=== PATIENT | male | born 1980 | race African-American/Black ===

== ENCOUNTER 2022-10-10 06:48 | Emergency (ER) | payer MEDICAID, OTHER ==
[~2022-10-10] VITALS: Ht 170.2 cm; Wt 96.0 kg
[2022-10-10 07:57] VITALS: BP 113/53
== END 2022-10-10 07:57 | disposition home or self-care (01) ==
LOC: ER 06:48
DX: L25.8 Unspecified contact dermatitis due to other agents (principal); T50.905A Adverse effect of unspecified drugs, medicaments and biological substances, initial encounter; Y92.89 Other specified places as the place of occurrence of the external cause; X58.XXXA Exposure to other specified factors, initial encounter

== ENCOUNTER 2023-03-22 19:58 | Emergency (ER) | payer MEDICAID ==
[~2023-03-22] VITALS: Ht 170.2 cm; Wt 90.8 kg
[2023-03-22 20:12] VITALS: BP 125/51
== END 2023-03-23 00:04 | disposition left against medical advice (07) ==
LOC: ER 19:58
DX: H57.13 Ocular pain, bilateral (principal); Z53.21 Procedure and treatment not carried out due to patient leaving prior to being seen by health care provider

== ENCOUNTER 2023-09-08 11:46 | Emergency (ER) | payer MEDICAID ==
[~2023-09-08] VITALS: Ht 167.6 cm; Wt 92.1 kg
[2023-09-08 12:22] VITALS: BP 102/72; PULSE 64; RESP 18; TEMP 97.9; O2SAT 97
[2023-09-08 12:25] LABS: Urine Bacteria FEW /hpf (None Seen); Urine Blood Negative /uL (Negative); Urine Clarity Clear (Clear); Urine Color Yellow (Yellow); Urine Mucus FEW (None Seen); Urine Protein, UAD TRACE (Negative); Urine Specific Gravity 1.029 (1.001-1.035); Urine Sperm PRESENT /hpf (None Seen); Urine Urobilinogen Normal (Negative); Urine WBC 2 /hpf (0 - 3)
[2023-09-08] MEDS ORDERED: KETOROLAC TROMETH 60MG/2ML VIAL IM ONE (12:30)
[2023-09-08] MEDS ORDERED: ACET-1080 PO (13:00)
[2023-09-08] MEDS ORDERED: METH-1182 PO (13:00)
== END 2023-09-08 13:06 | disposition home or self-care (01) ==
LOC: ER 11:46
DX: S39.012A Strain of muscle, fascia and tendon of lower back, initial encounter (principal); M51.36 Other intervertebral disc degeneration, lumbar region; Z88.8 Allergy status to other drugs, medicaments and biological substances; X50.0XXA Overexertion from strenuous movement or load, initial encounter; Y93.89 Activity, other specified; Y92.89 Other specified places as the place of occurrence of the external cause; Y99.8 Other external cause status
CPT/HCPCS: 72100; 81001; 96372; 99284; J1885

== ENCOUNTER 2023-12-31 21:27 | Emergency (ER) | payer MEDICAID ==
[~2023-12-31] VITALS: Ht 170.2 cm; Wt 95.5 kg
[~2023-12-31 21:27] MED LIST: ACET-1080 PO; METH-1182 PO
[2023-12-31 21:43] VITALS: BP 136/73; PULSE 94; RESP 14; TEMP 98.1
[2023-12-31 22:10] LABS: Urine Bacteria FEW /hpf (None Seen); Urine Blood Negative /uL (Negative); Urine Clarity Clear (Clear); Urine Color Yellow (Yellow); Urine Mucus FEW (None Seen); Urine Protein, UAD 1+ (Negative); Urine Specific Gravity 1.034 (1.001-1.035); Urine Sperm PRESENT /hpf (None Seen); Urine WBC 2 /hpf (0 - 3)
[2024-01-01 00:33] VITALS: O2SAT 98
[2024-01-02 22:06] LABS: Chlamydia Trachomatis, NAA Negative (Negative); Neisseria gonorrhoeae, NAA Negative (Negative)
== END 2024-01-01 00:40 | disposition home or self-care (01) ==
LOC: ER 21:27
DX: R36.9 Urethral discharge, unspecified (principal); Z79.899 Other long term (current) drug therapy; Z88.2 Allergy status to sulfonamides; Z88.8 Allergy status to other drugs, medicaments and biological substances
CPT/HCPCS: 81001

== ENCOUNTER 2025-08-24 01:55 | Emergency (ER) | payer MEDICAID ==
[~2025-08-24] VITALS: Ht 170.2 cm; Wt 95.6 kg
--- NOTE | 2025-08-24 03:38 | ED.PDOC ---
History of Present Illness HPI Comments 44 y/o obese M presents with c/c of lower back pain. No reported injuries. Does report chills and subjective fever. Denial of any numbness, tingling, or further associated symptoms. Denies numbness, weakness, loss of bowel bladder control or saddle anesthesia. Chief Complaint: Back Pain Time Seen by MD: 03:15 Primary Care Provider: none Reviewed Notes: Nurses Notes, Medications, Allergies Allergies: Coded Allergies: Ibuprofen (Verified Allergy, Unknown, 10/10/22) Sulfa Antibiotics (Verified Allergy, Unknown, 10/10/22) Home Meds Active Scripts Methocarbamol (Methocarbamol) 750 Mg Tab, 750 MG PO BID, #20 TAB Prov:GUERA AGUSTIN 09/08/23 Acetaminophen (Tylenol 8 Hour Arthritis) 650 Mg Tab, 650 MG PO TID, #30 TAB Prov:GUERA AGUSTIN 09/08/23 Information Source: Patient Mode of Arrival: Ambulatory Severity: Moderate Timing: Hours Duration: Since onset Prehospital treatment: None Past Medical History PAST MEDICAL HISTORY: Denies Surgical History: Denies all surgeries Family History Family History: Reviewed,noncontributory to illness, No family hx of Cancer, No family hx of DM, No family hx of Heart karen, No family hx of HTN, No family hx ofKidney karen, No family hx of Liver karen, No family hx of Lung karen, No family hx of Stroke Social History Smoker: Non-Smoker Alcohol: Denies ETOH Use Drugs: Denies Drug Use Lives In: Home All Other Systems: Reviewed and Negative (Comprehensive review of systems are negative unless stated in HPI) Physical Exam General Appearance: No Apparent Distress, Normal HEENT: Pharynx Normal Neck: Full Range of Motion, Non-Tender Respiratory: Lungs Clear, No Respiratory Distress, Normal Breath Sounds Cardiovascular: No Edema, No JVD, No Murmur, No Gallop, Normal Peripheral Pulses, Regular Rate/Rhythm Breast Exam: Deferred Gastrointestinal: No Organomegaly, Non Tender, No Pulsatile Mass, Normal Bowel Sounds, Soft Genitalia: Deferred Pelvic: Deferred Rectal: Deferred Extremities: Normal capillary refill, Normal range of motion, No pedal edema Musculoskeletal : Location: Bilateral Extremity Location: Back (TENDERNESS PALPATED OVER LOWER BACK MUSCULATURE. TENDERNESS PALPATED OVER L4-L5 LUMBAR SPINE NO NOTED CREPITUS OR STEP-OFFS. NEGATIVE STRAIGHT LEG RAISE TEST NEGATIVE BILATERAL. STRENGTH SENSORY MOTION INTACT. POSITIVE PEDAL PULSES.) Apperance: Normal Neurologic: Alert, No Motor Deficits, Normal Affect, Normal Mood, No Sensory Deficits Cerebellar Function: Normal Reflexes: NOT DONE Skin: Dry, Normal Color, Warm Lymphatic: No Adenopathy Was a procedure done? Was a procedure done?: No Differential Dx Considerations may include: musculoskeletal pain, sciatica, DDD, fracture, contusion, dislocation, among others X-Ray, Labs, Meds, VS Vital Signs Date Time Temp Pulse Resp B/P (MAP) Pulse Ox O2 Delivery O2 Flow Rate FiO2 08/24/25 04:18 97.7 65 18 134/59 (84) 95 97.7 08/24/25 04:18 65 18 95 Room Air 08/24/25 01:56 97.6 70 16 121/69 95 97.6 Lab Test 08/24/25 04:05 Range/Units Urine Color Yellow Yellow Urine Clarity Clear Clear Urine pH 6.0 5.0-9.0 Urine Specific Confluence 1.025 1.001-1.035 Urine Protein Negative Negative Urine Ketones Negative Negative Urine Blood Negative Negative /uL Urine Nitrite Negative Negative Urine Bilirubin Negative Negative Urine Urobilinogen Normal Negative mg/dL Urine Leukocyte Esterase Negative Negative /uL Urine RBC 3 0 - 3 /hpf Urine Microscopic WBC < 1 0-3 /HPF Urine Squamous Epithelial Cells None seen <5 /hpf Urine Bacteria None seen None Seen /hpf Urine Glucose Normal Normal mg/dL Current Medications Medications (Trade) Dose Ordered Sig/Eliazar Route Start Time Stop Time Status Last Admin Dexamethasone Sodium Phosphate (Decadron Injection) 10 mg ONCE ONCE IM 08/24/25 02:15 08/24/25 02:16 DC 08/24/25 04:18 Acetaminophen/ Hydrocodone Bitart ([place] 5/325MG Tab) 1 tab ONCE ONCE PO 08/24/25 02:15 08/24/25 02:16 DC 08/24/25 04:17 X-Ray, Labs, Meds, VS Comment TECHNIQUE: 2 views of the lumbar spine were obtained. FINDINGS: The lumbar vertebral alignment is normal. Moderate to severe L5-S1 disc height loss with adjacent endplate sclerosis and anterior osteophytosis. The intervertebral disc spaces are otherwise well- maintained. No significant facet arthropathy is noted. No acute fracture, vertebral compression deformity or aggressive osseous lesions. The paravertebral soft tissues are grossly unremarkable. IMPRESSION: 1. No acute fracture. 2. Degenerative change at the L5-S1 level. Lumbar spine x-ray no acute fractures osseous lesions or subluxations. Noted L5-S1 moderate to severe endplate sclerosis and anterior osteophytosis. UA negative for infection and blood. Likely lumbar strain. Patient was given Decadron 10 mg IM and [place] 5 mg p.o. reports improvement in pain and function requesting discharge at this time. Advised to rest increase p.o. fluids with electrolytes. Alternate between ice and heat. [id number] Tylenol or Motr in as needed for the pain per labeled dosing instructions. Follow up with PCP in 2-3 days if no improvement consider further imaging such as MRI if symptoms persist. ER return precautions given patient indicates understanding agrees with discharge plan of care. Time of 1ST Reevaluation: 03:45 Reevaluation 1ST: Unchanged Time of 2ND Reevaluation: 05:32 Reevaluation 2ND: Improved Patient Education/Counseling: Diagnosis, Treatment, Need For Follow Up Family Education/Counseling: No Family Present SEPSIS Sepsis Screen Date sepsis recognized/suspect: Aug 24, 2025 Time Sepsis recognized/suspect: 0159 Recent Procedure: No On Antibiotic Therapy: No Respiratory Rate >20: No Heart Rate >90: No Temp<36 C (96.8 F) or >38.3 C: No SBP <90 or MAP <65 mmHG: No New Acute Mental Status Change: No Is the patient on CPAP, BIPAP,: No Physician Orders Lumbar Spine 3 View (08/24/25 02:13) Vital Signs Date Time Temp Pulse Resp B/P (MAP) Pulse Ox O2 Delivery O2 Flow Rate FiO2 08/24/25 04:18 97.7 65 18 134/59 (84) 95 97.7 08/24/25 04:18 65 18 95 Room Air 08/24/25 01:56 97.6 70 16 121/69 95 97.6 Medications Medications Dose Ordered Sig/Eliazar Route Start Time Stop Time Status Last Admin Dose Admin Acetaminophen/ Hydrocodone Bitart 1 tab ONCE ONCE PO 08/24/25 02:15 08/24/25 02:16 DC 08/24/25 04:17 Dexamethasone Sodium Phosphate 10 mg ONCE ONCE IM 08/24/25 02:15 08/24/25 02:16 DC 08/24/25 04:18 Departure 1 Departure Time of Disposition: 05:32 Impression: Primary Impression: Lumbar sprain Qualified Codes: S33.5XXA - Sprain of ligaments of lumbar spine, initial encounter Disposition: HOME / SELF CARE / HOMELESS Condition: Stable Discharged With: Self Critical Care Note Critical Care Time?: No Stability Stability form required: No Heart Score Heart Score: Heart Score Response (Comments) Value History N/A 0 EKG N/A 0 Age N/A 0 Risk Factors N/A 0 Troponin N/A 0 Total 0 I personally scribed for ER ([email or web address]) on 08/24/25 at 03:38. Electronically submitted by Rigoberto Acevedo ([email or web address]). ER Aug 24, 2025 03:38 LISA JUDGE [employer] TRIMMER Aug 24, 2025 04:02
--- NOTE | 2025-08-24 03:47 | DVH ---
INDICATION: low back pain COMPARISON: XY LUMBAR SPINE 3 VIEW on DOS: 09/08/23 TECHNIQUE: 2 views of the lumbar spine were obtained. FINDINGS: The lumbar vertebral alignment is normal. Moderate to severe L5-S1 disc height loss with adjacent endplate sclerosis and anterior osteophytosis . The intervertebral disc spaces are otherwise well-maintained. No significant facet arthropathy is n oted. No acute fracture, vertebral compression deformity or aggressive osseous lesions. The paravertebral soft tissues are grossly unremarkable. IMPRESSION: 1. No acute fracture. 2. Degenerative change at the L5-S1 level.
[2025-08-24] MEDS: HYDROcodone-ACET 5/325MG TAB PO ONE (04:17)
[2025-08-24] MEDS: KETOROLAC TROMETH 60MG/2ML VIAL IM ONE (04:17)
[2025-08-24 04:18] VITALS: BP 134/59; PULSE 65; RESP 18; TEMP 97.7; O2SAT 95
[2025-08-24 05:27] LABS: Urine Protein, UAD Negative (Negative)
== END 2025-08-24 05:34 | disposition home or self-care (01) ==
LOC: ER 01:55
DX: S33.5XXA Sprain of ligaments of lumbar spine, initial encounter (principal); Z88.2 Allergy status to sulfonamides; Z88.6 Allergy status to analgesic agent; X58.XXXA Exposure to other specified factors, initial encounter; Y93.89 Activity, other specified; Y92.89 Other specified places as the place of occurrence of the external cause; Y99.8 Other external cause status
CPT/HCPCS: 72100; 81001; 96372; 99284; J1100; J1885